=== PATIENT | female | born 2005 | race Caucasian/White ===

== ENCOUNTER 2024-10-08 19:48 | Emergency (ER) | payer OTHER ==
[~2024-10-08] VITALS: Ht 160 cm; Wt 60.3 kg
[2024-10-08 19:51] VITALS: TEMP 98.1
[2024-10-08] MEDS: LIDOCAINE VISC 2% SOLN 15 ML UDC PO ONE (20:47)
[2024-10-08] MEDS: MAGNESIUM/ALUMINUM/SIMETHICONE 30 ML UDC PO ONE (20:48)
[2024-10-08] MEDS: FAMOTIDINE 20 MG/2 ML VIAL IV STA (22:27)
[2024-10-08 22:37] VITALS: PULSE 65; RESP 16
[2024-10-08] MEDS ORDERED: NITROFURANTOIN100 MG PO (22:44)
[2024-10-08 22:58] VITALS: BP 136/75; O2SAT 97
== END 2024-10-08 23:01 | disposition home or self-care (01) ==
LOC: FSED 19:52
DX: R10.13 Epigastric pain (principal); N39.0 Urinary tract infection, site not specified; R09.81 Nasal congestion; Z11.52 Encounter for screening for COVID-19
CPT/HCPCS: 0223U; 80048; 80076; 81003; 81025; 83518 ×2; 84484; 85025; 85379; 87086; 87400; 93005; 99284